=== PATIENT | male | born 1980 | race Two or more races ===

== ENCOUNTER 2016-11-08 12:05 | Inpatient (IN) | payer MEDICAID, OTHER ==
[~2016-11-08] VITALS: Ht 172.7 cm; Wt 123.8 kg
--- NOTE | 2016-11-08 12:05 | NUR ---
PRESENTS SELF TO ED DT RIGHT FOOT WOUND AND PAIN. PT WITH HX OF DIABETES, NAD NOTED, VSS, WAITING FOR MD RENATO.
--- NOTE | 2016-11-08 12:40 | NUR ---
UNABLE TO START IV ACCESS.
--- NOTE | 2016-11-08 12:52 | NUR ---
PAGED DR VALDOVINOS FOR INFECTIOUS DISEASE CONSULT PER DR ALBERTS.
[2016-11-08 13:08] LABS: BASOPHILS # (AUTO) 0.2 /CMM (0.0-0.2); BASOPHILS % (AUTO) 2.3 % (0.0-2.0); EOSINOPHILS # (AUTO) 0.4 /CMM (0.0-0.7); EOSINOPHILS % (AUTO) 5.3 % (0.0-6.0); HEMATOCRIT 43 % (39-51); HEMOGLOBIN 13.5 g/dL (13.5-17.5); LYMPHOCYTES # (AUTO) 1.5 /CMM (0.8-4.8); LYMPHOCYTES % (AUTO) 20.2 % (20.0-44.0); MEAN CORPUSCULAR HEMOGLOBIN 24 PG (26.0-33.0); MEAN CORPUSCULAR HGB CONC 31 g/dl (31.0-36.0); MEAN CORPUSCULAR VOLUME 75 fL (80-96); MONOCYTES # (AUTO) 0.4 /CMM (0.1-1.30); MONOCYTES % (AUTO) 5.6 % (2.0-12.0); NEUTROPHILS # (AUTO) 5.1 /CMM (1.8-8.9); NEUTROPHILS % (AUTO) 66.6 % (43.0-81.0); PLATELET COUNT (AUTO) 349 /CMM (150-450); RDW COEFFICIENT OF VARIATION 14.1 (11.5-15.0); RED BLOOD CELL COUNT(AUTO) 5.74 MIL/uL (4.5-6.0); WHITE BLOOD COUNT (AUTO) 7.6 K/uL (4.3-11.0)
[2016-11-08 13:31] LABS: CALCIUM, SERUM 8.8 mg/dL (8.5-10.1); CARBON DIOXIDE 30 mmol/L (21-32); CHLORIDE 99 mmol/L (98-107); CREATININE 0.8 mg/dL (0.6-1.3); GLUCOSE 264 mg/dL (74-106); POTASSIUM 4.7 mmol/L (3.5-5.1); SODIUM SERUM 135 mmol/L (136-145); UREA NITROGEN, BLOOD 15 mg/dL (7-18)
[2016-11-08 13:36] LABS: INR 0.98 (0.87-1.13); PROTHROMBIN TIME 10.2 SECS (9.5-12.7)
[2016-11-08 13:37] LABS: ALANINE AMINOTRANSFERASE 41 U/L (12-78); ALBUMIN 2.9 g/dL (3.4-5.0); ALKALINE PHOSPHATASE 101 U/L (46-116); ASPARTATE AMINOTRANSFERASE 13 U/L (15-37); BILIRUBIN,DIRECT 0.1 mg/dL (0.0-0.2); BILIRUBIN,TOTAL 0.2 mg/dL (0.2-1.0); TOTAL PROTEIN, SERUM 8.8 g/dL (6.4-8.2)
[2016-11-08 13:38] LABS: TROPONIN I < 0.017 ng/mL (0.00-0.056)
[2016-11-08] MEDS ORDERED: IV NS 0.9% 1,000 ML IV PRN (13:41)
[2016-11-08 13:48] LABS: APPEARANCE,URINE CLEAR (CLEAR); BILIRUBIN,URINE NEGATIVE (NEGATIVE); BLOOD, URINE TRACE-INTA Ery/uL (NEGATIVE); COLOR,URINE YELLOW (YELLOW); KETONES,URINE NEGATIVE (NEGATIVE); LEUKOCYTE ESTERASE ,URINE NEGATIVE (NEGATIVE); NITRITE, URINE NEGATIVE (NEGATIVE); PROTEIN,URINE TRACE mg/dl (NEGATIVE); UGLUCOSE TRACE mg/dL (NEGATIVE); UROBILINOGEN,URINE 0.2 EU/dL (0.2)
[2016-11-08 13:58] LABS: WBC,URINE 0-2 /HPF (0-3)
[2016-11-08 13:59] LABS: BACTERIA,URINE None seen /HPF (None Seen); MUCUS,URINE Moderate /LPF (None Seen); SQUAMOUS EPITHELIAL CELL,UR 0-2 /HPF (None Seen)
[2016-11-08 14:00] VITALS: BP 114/81
[2016-11-08] MEDS ORDERED: MAGNESIUM HYDROXIDE 30 ML UDC PO PRN ×2 (14:00→14:45)
[2016-11-08] MEDS ORDERED: CEFTRIAXONE 1 G in IV D5W 50 ML IV SCH ×2 (14:00→18:00)
[2016-11-08] MEDS ORDERED: HYDROCODONE/APAP 5/325MG 1 EACH TABLET PO PRN (14:00)
[2016-11-08] MEDS ORDERED: MAG HYDROX/AL HYDROX/SIMETH 30 ML UDC PO PRN ×2 (14:00→14:45)
[2016-11-08] MEDS ORDERED: Z GUARD REMEDY 2 OZ OINT TP PRN ×2 (14:00→14:45)
[2016-11-08] MEDS ORDERED: ZOLPIDEM TARTRATE 5 MG TABLET PO PRN (14:00)
[2016-11-08] MEDS ORDERED: ONDANSETRON HCL/PF 4 MG/2 ML VIAL IVP PRN ×2 (14:00→14:45)
[2016-11-08] MEDS ORDERED: ACETAMINOPHEN 325 MG TABLET PO PRN ×2 (14:00→14:45)
--- NOTE | 2016-11-08 14:26 | NUR ---
REPORT GIVEN TO CHEPE JEAN
[2016-11-08 14:45] VITALS: BP 114/81
[2016-11-08 16:00] VITALS: BP 113/77
--- NOTE | 2016-11-08 16:45 | NUR ---
MS MO Initial Notes: Patient arrived in unit at 14:45. Patient alert oriented x4. Was awaiting for admitting to admit the patient. 16:45--patient appeared in system. Patient stable upon arrival. Blood pressure: 114/81, pulse 100, SpO2 98% on room air. Patient afebrile with temperature of 97.7F. Patient reported dizziness upon arrival to unit. Blood sugar checked: 227. Report by Alejo from ER. Patient has an IV site Gauge 20 on right hand. Will continue to monitor and follow orders. Bed in lowest position. Call light within reach
[2016-11-08] MEDS ORDERED: FEE PK DOSING 1 MIN EA MC ONE (17:04)
[2016-11-08] MEDS: HYDROCODONE/APAP 5/325MG 1 EACH TABLET PO PRN ×2 (17:53→22:04)
[2016-11-08] MEDS: IV NS 0.9% 1,000 ML IV PRN (17:59)
[2016-11-08] MEDS: CEFTRIAXONE 1 G in IV D5W 50 ML IV SCH (18:00)
[2016-11-08] MEDS: VANCOMYCIN 1.25 GM in IV D5W 500 ML IV SCH (18:55)
--- NOTE | 2016-11-08 19:20 | NUR ---
RN Closing Notes: Patient resting in bed. Patient alert oriented x4. Non-labored breathing noted on room air. no signs of distress. Patient agreed to have partial skin assessment. No redness or bruising on back. Patient refused to have picture taken of right foot. Patient has an IV site Gauge 20 on right hand. Will continue to monitor and follow orders. Bed in lowest position. Endorsed to next shift
[2016-11-08 19:43] VITALS: BP 130/75
[2016-11-08] MEDS ORDERED: DEXTROSE 50%-WATER 50 ML DISP.SYRIN IV PRN (21:00)
[2016-11-08] MEDS ORDERED: INSULIN REGULAR, HUMAN 100 UNIT/ML 3 ML VIAL SQ PRN (21:00)
[2016-11-08] MEDS: BLOOD SUGAR DIAGNOSTIC 1 EACH STRIP IN SCH (22:05)
[2016-11-09] MEDS: VANCOMYCIN 1.25 GM in IV D5W 500 ML IV SCH ×3 (02:38→18:29)
--- NOTE | 2016-11-09 06:44 | NUR ---
MS RN NOTES AWAKE & RESPONSIVE. NOT IN ANY DISTRESS. NO SOB NOTED. DENIES ANY PAIN OR DISCOMFORT AT THIS TIME. WITH IVF INFUSING WELL. MONITORED ACCORDINGLY. CALL LIGHT WITHIN REACH. BED IN LOWEST POSITION. SR UP X 2 FOR SAFETY. WILL ENDORSE TO NEXT SHIFT.
[2016-11-09] MEDS: BLOOD SUGAR DIAGNOSTIC 1 EACH STRIP IN SCH ×5 (06:50→21:33)
[2016-11-09] MEDS ORDERED: DEXTROSE 50%-WATER 50 ML DISP.SYRIN IV PRN (07:00)
--- NOTE | 2016-11-09 07:30 | NUR ---
MS/RN Patient received Patient received from cook night. Dressing to right foot to be replaced as current dressing was removed by MD. All needs attended, call light within reach. Will continue to monitor and ensure safety.
[2016-11-09] MEDS: HYDROCODONE/APAP 5/325MG 1 EACH TABLET PO PRN ×3 (07:46→21:28)
[2016-11-09 08:00] VITALS: BP 128/75
[2016-11-09 08:26] LABS: CALCIUM, SERUM 8.6 mg/dL (8.5-10.1); CREATININE 0.9 mg/dL (0.6-1.3); POTASSIUM 4.1 mmol/L (3.5-5.1)
[2016-11-09] MEDS: CADEXOMER IODINE 40 GM TUBE TP SCH ×2 (09:34→21:33)
[2016-11-09] MEDS: DAKINS QUARTER STRENGTH (0.125%) 480 ML BOTTLE TOP SCH (09:34)
--- NOTE | 2016-11-09 09:47 | NUR ---
MS/RN Dressing Dressing to right foot changed, redressed with dakins and iodosorb.
--- NOTE | 2016-11-09 10:02 | NUR ---
WOUND CARE CONSULT WOUND CARE RECEIVED CONSULT. WOUND CARE WILL DEFER EVAL AND TREATMENT PLAN TO BARN BOSS DR ALBERTS AT THIS TIME. PATIENT WITH FIDELINA AT 19. DISCUSSED WITH NURSING STAFF. THERE ARE TREATMENT ORDERS IN PLACE FOR THE RIGHT FOOT WOUND PER DPM.
--- NOTE | 2016-11-09 10:06 | NUR ---
MS/RN Vancomycin Vanco administered as ordered. Trough last drawn yesterday, level was 0.
--- NOTE | 2016-11-09 12:30 | NUR ---
MS/RN Refused blood sugar Patient refused blood sugar to be checked, wanting to be left alone to sleep.
[2016-11-09] MEDS: IV NS 0.9% 1,000 ML IV PRN (13:18)
[2016-11-09] MEDS: CEFTRIAXONE 1 G in IV D5W 50 ML IV SCH (14:11)
[2016-11-09 16:00] VITALS: BP 126/76
--- NOTE | 2016-11-09 17:00 | NUR ---
MS/RN Blood sugar Blood sugar this evening 209, per sliding scale eight units regular insulin administered.
[2016-11-09] MEDS: LACTOBACILLUS RHAMNOSUS GG 1 EACH CAP.SPRINK PO SCH (17:21)
[2016-11-09] MEDS: INSULIN REGULAR, HUMAN 100 UNIT/ML 3 ML VIAL SQ PRN (17:25)
--- NOTE | 2016-11-09 18:36 | NUR ---
MS/RN End note Vanco level 14, evening dose of vanco administered as ordered. Dressing on right foot remains clean and dry, no oozing noted. Last pain medication given at 1722. All needs attended at this time, will continue to monitor and endorse to caustic cresylate shift superintendent.
[2016-11-09 20:00] VITALS: BP 112/69
[2016-11-09] MEDS: *INSULIN REGULAR(HUMULIN R)HUM 100 UNIT/ML VIAL SQ PRN (21:26)
[2016-11-10] MEDS: VANCOMYCIN 1.25 GM in IV D5W 500 ML IV SCH ×3 (03:13→17:42)
[2016-11-10] MEDS: BLOOD SUGAR DIAGNOSTIC 1 EACH STRIP IN SCH ×4 (06:36→21:30)
[2016-11-10 06:37] LABS: CALCIUM, SERUM 8.4 mg/dL (8.5-10.1); CREATININE 0.8 mg/dL (0.6-1.3)
[2016-11-10] MEDS: INSULIN REGULAR, HUMAN 100 UNIT/ML 3 ML VIAL SQ PRN ×3 (06:43→17:49)
[2016-11-10] MEDS: IV NS 0.9% 1,000 ML IV PRN ×2 (07:13→17:43)
--- NOTE | 2016-11-10 07:30 | NUR ---
MS/RN Patient received Patient received from maintenance technician 3rd shift. No needs expressed at this time, call light within reach. Will continue to monitor and ensure safety.
[2016-11-10 08:00] VITALS: BP 120/77
[2016-11-10] MEDS: HYDROCODONE/APAP 5/325MG 1 EACH TABLET PO PRN ×2 (08:00→17:41)
[2016-11-10] MEDS: LACTOBACILLUS RHAMNOSUS GG 1 EACH CAP.SPRINK PO SCH ×2 (08:00→17:40)
[2016-11-10] MEDS: CADEXOMER IODINE 40 GM TUBE TP SCH ×2 (08:01→17:51)
[2016-11-10] MEDS: DAKINS QUARTER STRENGTH (0.125%) 480 ML BOTTLE TOP SCH (08:01)
--- NOTE | 2016-11-10 08:18 | NUR ---
MS/RN Pain C/O pain to right foot, norco one tablet given, will monitor effectiveness.
[2016-11-10 08:23] VITALS: BP 109/68
--- NOTE | 2016-11-10 10:00 | NUR ---
MS/CHEPE hurt as ordered.
--- NOTE | 2016-11-10 12:15 | NUR ---
MS/RN Blood sugar Blood sugar at noon 333, 16 units of insulin administered as per sliding scale.
[2016-11-10] MEDS: CEFTRIAXONE 1 G in IV D5W 50 ML IV SCH (13:52)
[2016-11-10 16:00] VITALS: BP 124/72
[2016-11-10 16:36] VITALS: BP 124/72
--- NOTE | 2016-11-10 18:50 | NUR ---
MS/RN End note Patient appears comfortable, in no distress. Last pain medication administered at 1715. Dressing to right foot dry and intact. All needs attended, will endorse to shiftman.
[2016-11-10 20:00] VITALS: BP 120/75
--- NOTE | 2016-11-10 20:10 | NUR ---
MS RN NOTE: PATIENT RESTING IN BED, NO ACUTE DISTRESS NOTED. BREATHING EVEN AND UNLABORED, NO SOB NOTED. IV TO TIRSO IN PLACE, INFUSING NS AT 75ML/HR. DRESSING TO RIGHT FOOT IN PLACE, CLEAN AND DRY. NO S/S OF HYPER/HYPOGLYCEMIA NOTED. BED LOCKED AND IN LOWEST POSITION, CALL LIGHT IN REACH. WILL CONTINUE TO MONITOR.
--- NOTE | 2016-11-10 21:30 | NUR ---
MS RN NOTE: PATIENT BLOOD SUGAR LEVEL 287 MG/DL, PATIENT TO RECEIVE 6 UNITS OF INSULIN PER SLIDING SCALE, NO S/S OF HYPERGLYCEMIA NOTED. WILL CONTINUE TO MONITOR.
[2016-11-10] MEDS: *INSULIN REGULAR(HUMULIN R)HUM 100 UNIT/ML VIAL SQ PRN (21:36)
--- NOTE | 2016-11-10 22:29 | NUR ---
Spoke with patient,he lives in [place] with roommates. He ambulates with a cane. He is independent with adl's. He regularly follow up with [facility] wound [facility] for wound management. Patient reports he does his wound care at home and will need more supplies from [facility] upon discharge. Addendum: 11/10/16 at 2229 by LAUREN ERNANDEZ RN Amended: Links added.
[2016-11-11] MEDS: VANCOMYCIN 1.25 GM in IV D5W 500 ML IV SCH ×3 (01:39→18:34)
--- NOTE | 2016-11-11 06:20 | NUR ---
MS RN NOTE: PATIENT RESTING IN BED, NO ACUTE DISTRESS NOTED. BREATHING EVEN AND UNLABORED, NO SOB NOTED. IV TO TIRSO IN PLACE, INFUSING NS AT 75ML/HR. DRESSING TO RIGHT FOOT IN PLACE, CLEAN AND DRY. NO S/S OF HYPER/HYPOGLYCEMIA NOTED. BED LOCKED AND IN LOWEST POSITION, CALL LIGHT IN REACH. WILL ENDORSE TO DAY NURSE TO CONTINUE WITH PLAN OF CARE.
[2016-11-11] MEDS: BLOOD SUGAR DIAGNOSTIC 1 EACH STRIP IN SCH ×4 (06:46→21:24)
[2016-11-11] MEDS: INSULIN REGULAR, HUMAN 100 UNIT/ML 3 ML VIAL SQ PRN ×3 (06:54→17:16)
[2016-11-11 07:11] LABS: CALCIUM, SERUM 8.8 mg/dL (8.5-10.1); CREATININE 0.8 mg/dL (0.6-1.3); POTASSIUM 4.3 mmol/L (3.5-5.1)
[2016-11-11 08:00] VITALS: BP 128/67
[2016-11-11] MEDS: LACTOBACILLUS RHAMNOSUS GG 1 EACH CAP.SPRINK PO SCH ×2 (09:24→16:56)
[2016-11-11] MEDS: DAKINS QUARTER STRENGTH (0.125%) 480 ML BOTTLE TOP SCH (09:25)
[2016-11-11] MEDS: CADEXOMER IODINE 40 GM TUBE TP SCH ×2 (09:25→17:15)
[2016-11-11] MEDS: HYDROCODONE/APAP 5/325MG 1 EACH TABLET PO PRN ×3 (09:28→21:24)
[2016-11-11] MEDS: CEFTRIAXONE 1 G in IV D5W 50 ML IV SCH (14:22)
[2016-11-11] MEDS: IV NS 0.9% 1,000 ML IV PRN (14:23)
[2016-11-11 16:00] VITALS: BP 117/71
[2016-11-11] MEDS: NICOTINE PATCH (21MG) 21 MG PATCH.TD24 TD SCH (16:56)
--- NOTE | 2016-11-11 19:14 | NUR ---
RN CLOSING NOTES NO SIGNIFICANT CHANGE IN PATIENT CONDITION. NO SOB OR DISTRESS NOTED AT THIS TIME. PATIENT DENIES PAIN AT THIS TIME. BED IN A LOW POSITION, CALL LIGHT WITHIN PATIENT REACH. ENDORSED FOR LAITH.
--- NOTE | 2016-11-11 19:45 | NUR ---
MS RN NOTES RECEIVED ON BED WATCHING TV PROGRAM,A/O X4,NO SOB,RIGHT FOOT DRESSING INTACT AND DRY.SALINE LOCK X2 ON RIGHT ARM INTACT AND PATENT.WITH IVF NS AT 75ML/HR RATE IN PROGRESS VIA IV PUMP.CALL LIGT IN REACH,NEEDS ANTICIPATED.
[2016-11-11 20:00] VITALS: BP 112/77
--- NOTE | 2016-11-11 21:24 | NUR ---
MS RN NOTES PAIN MANAGEMENT C/O PAIN VIA RIGHT FOOT/10 ON PAIN SCALE,MEDICATED WITH NORCO 5/325,1TAB PO ORDERED
[2016-11-11] MEDS: *INSULIN REGULAR(HUMULIN R)HUM 100 UNIT/ML VIAL SQ PRN (21:42)
--- NOTE | 2016-11-11 22:00 | NUR ---
MS RN NOTES HAD SHOWER,SALINE LOCK RIGHT UPPER ARM INFILTRATED.NEW SALINE LOCK PLACE ON LFA #22,SAME IVF INFUSING AT THIS TIME.DRESSING CHANGE LOW ON THE RIGHT FOOT POST SHOWER.
--- NOTE | 2016-11-11 22:15 | NUR ---
MS RN NOTES ACCU-CHECK BLOOD SUGAR CHECK 361,COVERED WITH HUMULIN R 10 UNITES PER AGGRESSIVE SLIDING SCALE.
[2016-11-12] MEDS: VANCOMYCIN 1.25 GM in IV D5W 500 ML IV SCH ×3 (01:34→17:05)
--- NOTE | 2016-11-12 06:14 | NUR ---
MS RN NOTES FAIRLY RESTED AT NIGHT,IVF INFUSING,IV ABX TOLERATED WELL.IN NO ACUTE DISTRESS.WILL ENDORSE TO DAY NURSE FOR LAITH.
--- NOTE | 2016-11-12 07:07 | NUR ---
RN INITIAL NOTES REPORT RECEIVED AT THE BEDSIDE. PATIENT IS SLEEPING. NO SOB OR DISTRESS NOTED AT THIS TIME. PATIENT DENIES SIGNIFICANT PAIN. BLOOD SUGAR CHECKED, WILL ADMIN INSULIN ORDERED. BED IN A LOW POSITION, CALL LIGHT WITHIN PATIENT REACH. WILL CONTINUE TO MONITOR.
[2016-11-12 07:33] LABS: CALCIUM, SERUM 8.6 mg/dL (8.5-10.1); CREATININE 0.9 mg/dL (0.6-1.3); POTASSIUM 3.9 mmol/L (3.5-5.1)
[2016-11-12 08:00] VITALS: BP 105/55
[2016-11-12] MEDS: BLOOD SUGAR DIAGNOSTIC 1 EACH STRIP IN SCH ×4 (08:04→21:50)
[2016-11-12] MEDS: DAKINS QUARTER STRENGTH (0.125%) 480 ML BOTTLE TOP SCH (08:05)
[2016-11-12] MEDS: NICOTINE PATCH (21MG) 21 MG PATCH.TD24 TD SCH (08:05)
[2016-11-12] MEDS: LACTOBACILLUS RHAMNOSUS GG 1 EACH CAP.SPRINK PO SCH ×2 (08:05→17:05)
[2016-11-12] MEDS: CADEXOMER IODINE 40 GM TUBE TP SCH ×2 (08:05→17:05)
[2016-11-12] MEDS: INSULIN REGULAR, HUMAN 100 UNIT/ML 3 ML VIAL SQ PRN ×3 (08:07→17:05)
[2016-11-12] MEDS: HYDROCODONE/APAP 5/325MG 1 EACH TABLET PO PRN ×3 (09:05→22:00)
[2016-11-12] MEDS: IV NS 0.9% 1,000 ML IV PRN (11:48)
[2016-11-12] MEDS: CEFTRIAXONE 1 G in IV D5W 50 ML IV SCH (14:30)
[2016-11-12 16:00] VITALS: BP 122/72
[2016-11-12 18:23] LABS: BASOPHILS % (AUTO) 0.3 % (0.0-2.0); EOSINOPHILS # (AUTO) 0.4 /CMM (0.0-0.7); EOSINOPHILS % (AUTO) 5.1 % (0.0-6.0); HEMATOCRIT 41 % (39-51); LYMPHOCYTES # (AUTO) 2.3 /CMM (0.8-4.8); LYMPHOCYTES % (AUTO) 27.9 % (20.0-44.0); MEAN CORPUSCULAR HEMOGLOBIN 24 PG (26.0-33.0); MEAN CORPUSCULAR HGB CONC 31 g/dl (31.0-36.0); MEAN CORPUSCULAR VOLUME 76 fL (80-96); MONOCYTES # (AUTO) 0.3 /CMM (0.1-1.30); MONOCYTES % (AUTO) 4.2 % (2.0-12.0); NEUTROPHILS # (AUTO) 5.1 /CMM (1.8-8.9); NEUTROPHILS % (AUTO) 62.5 % (43.0-81.0); PLATELET COUNT (AUTO) 329 /CMM (150-450); RDW COEFFICIENT OF VARIATION 14.9 (11.5-15.0); RED BLOOD CELL COUNT(AUTO) 5.43 MIL/uL (4.5-6.0); WHITE BLOOD COUNT (AUTO) 8.2 K/uL (4.3-11.0)
--- NOTE | 2016-11-12 19:30 | NUR ---
RN INITIAL NOTES REPORT RECEIVED AT THE BEDSIDE. PATIENT AWAKE ALERT AND ORIENTED SITTING UP IN CHAIR. NO SOB OR DISTRESS NOTED AT THIS TIME. PATIENT DENIES SIGNIFICANT PAIN. BED IN A LOW POSITION, CALL LIGHT WITHIN PATIENT REACH. WILL CONTINUE TO MONITOR.
[2016-11-12 20:00] VITALS: BP 132/71
[2016-11-12] MEDS: *INSULIN REGULAR(HUMULIN R)HUM 100 UNIT/ML VIAL SQ PRN (22:03)
[2016-11-12] MEDS: ZOLPIDEM TARTRATE 5 MG TABLET PO PRN (22:23)
[2016-11-13] MEDS: VANCOMYCIN 1.25 GM in IV D5W 500 ML IV SCH ×2 (03:53→10:19)
--- NOTE | 2016-11-13 06:16 | NUR ---
MS RN NOTE PATIENT STABLE. NO DISTRESS NOTED. IV SITE INTACT, WITH NO REDNESS OR INFILTRATION. FLUIDS RUNNING ORDERED. PATIENT NPO SINCE MIDNIGHT FOR DEBRIDEMENT OF RIGHT FOOT THIS AM. CONSENT SIGNED AND PRE-OP CHECKLIST COMPLETE. WILL ENDORSE TO DAY SHIFT FOR LAITH.
[2016-11-13 06:44] LABS: BASOPHILS % (AUTO) 0.5 % (0.0-2.0); EOSINOPHILS # (AUTO) 0.3 /CMM (0.0-0.7); HEMATOCRIT 38 % (39-51); HEMOGLOBIN 12.5 g/dL (13.5-17.5); LYMPHOCYTES # (AUTO) 2.1 /CMM (0.8-4.8); LYMPHOCYTES % (AUTO) 24.1 % (20.0-44.0); MEAN CORPUSCULAR HEMOGLOBIN 25 PG (26.0-33.0); MEAN CORPUSCULAR HGB CONC 33 g/dl (31.0-36.0); MEAN CORPUSCULAR VOLUME 76 fL (80-96); MONOCYTES # (AUTO) 0.5 /CMM (0.1-1.30); MONOCYTES % (AUTO) 5.2 % (2.0-12.0); NEUTROPHILS # (AUTO) 5.7 /CMM (1.8-8.9); NEUTROPHILS % (AUTO) 66.2 % (43.0-81.0); PLATELET COUNT (AUTO) 328 /CMM (150-450); RDW COEFFICIENT OF VARIATION 14.8 (11.5-15.0); RED BLOOD CELL COUNT(AUTO) 5.08 MIL/uL (4.5-6.0); WHITE BLOOD COUNT (AUTO) 8.6 K/uL (4.3-11.0)
[2016-11-13] MEDS: BLOOD SUGAR DIAGNOSTIC 1 EACH STRIP IN SCH ×4 (06:57→21:31)
[2016-11-13 07:00] LABS: CREATININE 0.9 mg/dL (0.6-1.3); MAGNESIUM 1.9 mg/dL (1.8-2.4); PHOSPHORUS 4.1 mg/dL (2.5-4.9); POTASSIUM 3.9 mmol/L (3.5-5.1)
--- NOTE | 2016-11-13 07:03 | NUR ---
MS RN NOTE BLOOD SUGAR 223. NO INSULIN GIVEN. PATIENT NPO FOR DEBRIDEMENT. OR CAME TO SOFTWARE DEPLOYMENT ENGINEER PATIENT FOR SURGERY AT THIS TIME.
[2016-11-13 07:17] LABS: CALCIUM, SERUM 8.3 mg/dL (8.5-10.1)
[2016-11-13] MEDS ORDERED: FENTANYL PF 100MCG/2ML AMPUL ONE (07:20)
[2016-11-13] MEDS ORDERED: MIDAZOLAM HCL 2 MG/2ML VIAL ONE (07:20)
--- NOTE | 2016-11-13 07:20 | NUR ---
CHEPE MS NOTES PATIENT CURRENTLY IN OR FOR WOUND DEBRIDEMENT.
[2016-11-13] MEDS ORDERED: LIDOCAINE 1% INJ 50 ML MDV IJ ONE (07:57)
[2016-11-13 08:00] VITALS: BP 122/68
--- NOTE | 2016-11-13 08:57 | NUR ---
RN MS NOTES PATIENT CAME BACK FROM OR ALERT AND ORIENTED, ASKING FOR A CIGARETTE AT 0930, INFORMED PATIENT HE SHOULD WAIT AN HOUR OR TWO FOR SAFETY REASONS D/T THE ANESTHESIA. PATIENT STATED HE CANNOT WAIT AN HOUR, PER PATIENT "I AM GOOD." EXPLAINED RISKS, BUTPATIENT IS STILL INSISTING OF GETTING A CIGARETTE.
[2016-11-13] MEDS: NICOTINE PATCH (21MG) 21 MG PATCH.TD24 TD SCH (09:00)
[2016-11-13] MEDS: DAKINS QUARTER STRENGTH (0.125%) 480 ML BOTTLE TOP SCH (09:00)
[2016-11-13] MEDS: CADEXOMER IODINE 40 GM TUBE TP SCH ×2 (09:00→17:00)
[2016-11-13] MEDS: LACTOBACILLUS RHAMNOSUS GG 1 EACH CAP.SPRINK PO SCH ×2 (09:04→17:18)
--- NOTE | 2016-11-13 09:05 | NUR ---
RN MS NOTES OFFERED NICOTINE PATCH, REFUSED, IODOSORB AND DAKINS NOT ADMINISTERED, D/T RIGHT FOOT COVERED WITH DRESSING FROM S/P DEBRIDEMENT.
[2016-11-13] MEDS: HYDROCODONE/APAP 5/325MG 1 EACH TABLET PO PRN ×3 (09:06→21:34)
[2016-11-13] MEDS: INSULIN REGULAR, HUMAN 100 UNIT/ML 3 ML VIAL SQ PRN ×3 (12:01→21:33)
[2016-11-13] MEDS: CEFTRIAXONE 1 G in IV D5W 50 ML IV SCH (14:54)
[2016-11-13] MEDS: IV NS 0.9% 1,000 ML IV PRN (15:02)
[2016-11-13 16:00] VITALS: BP 120/69
--- NOTE | 2016-11-13 18:35 | NUR ---
RN MS NOTES PATIENT ALERT AND ORIENTED, NO DISTRESS, RIGHT FOOT DRESSING C/D/I, NO BLEEDING NOTED, INSTRUCTED PATIENT TO ELEVATE RLE, BUT PATIENT KEPT MOVING AND TRANSFERRING HIMSELF TO HIS WHEELCHAIR TO SMOKE, VITAL SIGNS STABLE, WILL START PT/OT EVAL TOMORROW, NEEDS ATTENDED AND MET, CALL LIGHT WITHIN REACH, WILL ENDORSE TO NURSE RECRUITER FOR LAITH.
--- NOTE | 2016-11-13 19:30 | NUR ---
MS RN NOTE RECEIVED PATIENT AWAKE AND ALERT IN CHAIR. NO RESPIRATORY DISTRESS OR SOB. REPORTS 6/10 PAIN TO RIGHT FOOT. RELAXATION TECHNIQUES PROVIDED. WILL ADMINISTER PAIN MEDICATION ORDERED. IV SITE INTACT, WITH FLUIDS RUNNING ORDERED. BED LOCKED AND IN LOWEST POSITION, SIDE RAILS UP, CALL LIGHT WITHIN REACH. WILL CONTINUE TO MONITOR.
[2016-11-13] MEDS ORDERED: INSU3INS6 SUBCUT (19:40)
[2016-11-13] MEDS ORDERED: INSU100V27 SQ (19:40)
--- NOTE | 2016-11-13 19:40 | NUR ---
RN MS NOTES PATIENT REPORTED INSULIN DOSAGES FROM HOME, INPUTTED IN MED RECON, DR. WAGNER MADE AWARE.
[2016-11-13 20:00] VITALS: BP 119/61
[2016-11-13] MEDS: VANCOMYCIN 1.5 GM in IV D5W 500ml IV SCH (20:27)
[2016-11-13] MEDS: ZOLPIDEM TARTRATE 5 MG TABLET PO PRN (21:58)
[2016-11-14 06:35] LABS: BASOPHILS # (AUTO) 0.1 /CMM (0.0-0.2); BASOPHILS % (AUTO) 0.6 % (0.0-2.0); EOSINOPHILS # (AUTO) 0.3 /CMM (0.0-0.7); EOSINOPHILS % (AUTO) 3.5 % (0.0-6.0); HEMATOCRIT 37 % (39-51); HEMOGLOBIN 12.1 g/dL (13.5-17.5); LYMPHOCYTES # (AUTO) 2.4 /CMM (0.8-4.8); LYMPHOCYTES % (AUTO) 25.6 % (20.0-44.0); MEAN CORPUSCULAR HEMOGLOBIN 24 PG (26.0-33.0); MEAN CORPUSCULAR HGB CONC 33 g/dl (31.0-36.0); MEAN CORPUSCULAR VOLUME 75 fL (80-96); MONOCYTES # (AUTO) 0.6 /CMM (0.1-1.30); MONOCYTES % (AUTO) 6.3 % (2.0-12.0); NEUTROPHILS # (AUTO) 5.9 /CMM (1.8-8.9); PLATELET COUNT (AUTO) 317 /CMM (150-450); RED BLOOD CELL COUNT(AUTO) 4.97 MIL/uL (4.5-6.0); WHITE BLOOD COUNT (AUTO) 9.2 K/uL (4.3-11.0)
[2016-11-14] MEDS: INSULIN REGULAR, HUMAN 100 UNIT/ML 3 ML VIAL SQ PRN ×4 (06:50→21:44)
[2016-11-14] MEDS: BLOOD SUGAR DIAGNOSTIC 1 EACH STRIP IN SCH ×4 (06:51→21:28)
--- NOTE | 2016-11-14 06:53 | NUR ---
MS RN NOTE PATIENT STABLE. BLOOD SUGAR 144. 2 UNITS GIVEN. WILL ENDORSE TO DAY SHIFT FOR LAITH.
[2016-11-14 06:54] LABS: CALCIUM, SERUM 8.3 mg/dL (8.5-10.1); CREATININE 0.7 mg/dL (0.6-1.3); MAGNESIUM 1.9 mg/dL (1.8-2.4); PHOSPHORUS 3.9 mg/dL (2.5-4.9)
--- NOTE | 2016-11-14 07:59 | NUR ---
RN NOTES RECEIVED PT. PT IS STABLE AND RESTING IN BED. A/OX4. NO S/S OF DISTRESS OR SOB. PT HAS NO C/O PAIN AT THIS TIME. IV ACCESS LOCATED ON LEFT FA, 22G RUNNING NS AT 75 ML/HR. SAFETY MEASURES IN PLACE, CALL LIGHT WITHIN REACH. WILL CONTINUE TO MONITOR.
[2016-11-14 08:00] VITALS: BP 108/51
[2016-11-14] MEDS: NICOTINE PATCH (21MG) 21 MG PATCH.TD24 TD SCH (09:00)
[2016-11-14] MEDS: LACTOBACILLUS RHAMNOSUS GG 1 EACH CAP.SPRINK PO SCH ×2 (09:08→17:36)
[2016-11-14] MEDS: VANCOMYCIN 1.5 GM in IV D5W 500ml IV SCH ×2 (09:08→19:40)
[2016-11-14] MEDS: CADEXOMER IODINE 40 GM TUBE TP SCH ×2 (09:18→17:42)
[2016-11-14] MEDS: DAKINS QUARTER STRENGTH (0.125%) 480 ML BOTTLE TOP SCH (09:18)
[2016-11-14] MEDS: CEFTRIAXONE 1 G in IV D5W 50 ML IV SCH (14:48)
[2016-11-14 16:00] VITALS: BP 99/54
--- NOTE | 2016-11-14 19:16 | NUR ---
RN CLOSING NOTES PT IS IN BED RESTING. A/OX4. NO S/S OF DISTRESS OR SOB. PT HAS MILD C/O PAIN, WILL ENDORSE TO ANALYTICS SPECIALIST TO ADDRESS. NEW IV MIDLINE LOCATED ON RIGHT WRIST. LEFT FA PERIPHERAL IV D/C DUE TO INFILTRATION. SAFETY MEASURES IN PLACE, CALL LIGHT WITHIN REACH, WILL ENDORSE TO ANALYTICS SPECIALIST FOR LAITH.
[2016-11-14 20:00] VITALS: BP 115/57
--- NOTE | 2016-11-14 20:00 | NUR ---
MS RN NOTES IN ROOM,SITTING ON BEDSIDE CHAIR,RIGHT FOOT DRESSING INTACT AND DRY.NO ACTIVE BLEEDING NOTED.ADVISED NON WEIGHT BEARING ON THE RIGHT FOOT.SALINE LOCK RIGHT WRIST INTACT AND PATENT.IVF NS AT 75ML/HR RATE IN PROGRESS.
--- NOTE | 2016-11-14 20:00 | NUR ---
MS RN NOTES DUE VANCOMYCIN 1.5GM IVPB HUNG
[2016-11-14 20:05] VITALS: BP 115/57
[2016-11-14] MEDS: HYDROCODONE/APAP 10/325MG 1 EA TABLET PO PRN (20:32)
--- NOTE | 2016-11-14 20:32 | NUR ---
MS RN NOTES PAIN MANAGEMENT C/O PAIN 7/10 ON PAIN SCALE VIA RIGHT FOOT,MEDICATED WITH NORCO 10/325MG,1 TAB PO ORDERED FOR MODERATE PAIN
[2016-11-14] MEDS ORDERED: INSULIN DETEMIR 100 UNIT/ML CARTRIDGE SQ ONE (22:10)
[2016-11-14] MEDS: INSULIN DETEMIR 100 UNIT/ML CARTRIDGE SQ SCH (22:44)
--- NOTE | 2016-11-14 22:44 | NUR ---
MS RN NOTES BLOOD SUGAR 193,NEW ORDER OF LANTUS 42 UNITS ADMINISTERED SQ VIA LEFT DELTOID
[2016-11-14] MEDS: ZOLPIDEM TARTRATE 5 MG TABLET PO PRN (23:39)
--- NOTE | 2016-11-14 23:39 | NUR ---
MS RN NOTES C/ INSOMNIA.AMBIEN 5MG PO GIVEN ORDERED.
[2016-11-15] MEDS: BLOOD SUGAR DIAGNOSTIC 1 EACH STRIP IN SCH ×4 (05:55→21:23)
--- NOTE | 2016-11-15 07:26 | NUR ---
MS RN NOTES IV SITE INFILTRATED,NEEDLE REMOVED PER PATIENT REQUEST.OFFERED TO PUT NEW SALINE LOCK BUT HE WANTS TO SLEEP.ENDORSE TO ADEN MO FOR LAITH.
--- NOTE | 2016-11-15 07:50 | NUR ---
RN NOTES PT IS AWAKE AND RESTING IN BED. A/OX3. PT HAS NO S/S OF DISTRESS OR SOB. NO C/O PAIN AT THIS TIME. PT HAD REMOVED IV ACCESS PREVIOUS NIGHT. MIDLINE ORDERED. SAFETY MEASURES IN PLACE, CALL LIGHT WITHIN REACH. WILL CONTINUE TO MONITOR.
[2016-11-15 08:00] VITALS: BP 117/67
[2016-11-15] MEDS: NICOTINE PATCH (21MG) 21 MG PATCH.TD24 TD SCH (09:00)
[2016-11-15] MEDS: LACTOBACILLUS RHAMNOSUS GG 1 EACH CAP.SPRINK PO SCH ×2 (09:18→16:00)
[2016-11-15] MEDS: VANCOMYCIN 1.5 GM in IV D5W 500ml IV SCH ×2 (09:19→19:50)
[2016-11-15] MEDS: DAKINS QUARTER STRENGTH (0.125%) 480 ML BOTTLE TOP SCH (09:20)
[2016-11-15] MEDS: CADEXOMER IODINE 40 GM TUBE TP SCH ×2 (09:20→17:45)
[2016-11-15] MEDS: INSULIN ASPART HUMALOG/NOVOLOG 100 UNIT/ML CARTRIDGE SQ SCH ×3 (09:38→17:45)
[2016-11-15] MEDS: HYDROCODONE/APAP 10/325MG 1 EA TABLET PO PRN ×3 (09:39→21:59)
[2016-11-15 11:53] LABS: CALCIUM, SERUM 8.5 mg/dL (8.5-10.1); CREATININE 0.8 mg/dL (0.6-1.3); POTASSIUM 4.2 mmol/L (3.5-5.1)
[2016-11-15] MEDS: CEFTRIAXONE 1 G in IV D5W 50 ML IV SCH (15:50)
[2016-11-15 16:00] VITALS: BP 124/66
[2016-11-15] MEDS: FERROUS SULFATE (325 MG) 325 MG/TAB TABLET PO SCH (17:40)
--- NOTE | 2016-11-15 18:47 | NUR ---
RN CLOSING NOTE PT IS A/OX4, SITTING IN BEDSIDE CHAIR. NO S/S OF DISTRESS OR SOB. NO C/O PAIN. NEXT PAIN MANAGEMENT PHARMACOLOGICAL INTERVENTION SET FOR 2200. IV ACCESS PATENT, RIGHT UPPER ARM MIDLINE 18G. SAFETY MEASURES IN PLACE, CALL LIGHT WITHIN REACH. WILL ENDORSE TO REGIONAL PROPERTY MANAGER FOR LAITH.
--- NOTE | 2016-11-15 19:30 | NUR ---
RN NOTES RECEIVED PT. AWAKE ,SITTING ON THE CHAIR, TALKING TO HIS FRIEND, MIDLINE IN PLACE, DENIES PAIN, NO SOB, CALL LIGHT WITHIN REACH, SIDERAILS UPX2 CONTINUE TO MONITOR
[2016-11-15 20:00] VITALS: BP 122/75
--- NOTE | 2016-11-15 21:20 | NUR ---
RN NOTES ASKED FOR SLEEPING PILL- AMBIEN 10MG PO GIVEN ORDERED, V/S STABLE
[2016-11-15] MEDS: INSULIN DETEMIR 100 UNIT/ML CARTRIDGE SQ SCH (21:28)
[2016-11-15] MEDS: INSULIN REGULAR, HUMAN 100 UNIT/ML 3 ML VIAL SQ PRN (21:32)
[2016-11-15] MEDS ORDERED: ZOLPIDEM TARTRATE 5 MG TABLET PO PRN (22:00)
--- NOTE | 2016-11-15 22:02 | NUR ---
rn notes complained of right foot pain- norco 10/325 mg po given as ordered, v/s stable
--- NOTE | 2016-11-15 23:00 | NUR ---
RN NOTES PT ASKED TO BE UNPLUGGED ON HIS IV FLUID SINCE HE'S DRINKING A LOT OF WATER
[2016-11-16] MEDS: HYDROCODONE/APAP 10/325MG 1 EA TABLET PO PRN ×3 (05:21→21:40)
--- NOTE | 2016-11-16 05:23 | NUR ---
RN NOTES COMPLAINED OF RIGHT FOOT PAIN- NORCO 410/325MG PO GIVEN ORDERED, V/S STABLE
--- NOTE | 2016-11-16 06:23 | NUR ---
RN NOTES SLEEPING BUT AROUSABLE, DENIES PAIN, NO SOB, MORNING CARE RENDERED, CALL LIGHT WITHIN REACH, SIDERAILS UPX2 PT. NEEDS ATTENDED
[2016-11-16] MEDS: BLOOD SUGAR DIAGNOSTIC 1 EACH STRIP IN SCH ×4 (06:35→21:33)
[2016-11-16] MEDS: INSULIN REGULAR, HUMAN 100 UNIT/ML 3 ML VIAL SQ PRN ×3 (06:41→21:36)
--- NOTE | 2016-11-16 07:30 | NUR ---
MS/RN Patient received Patient received from overnight caregiver. A/0X4, denies any pain or discomfort, dressing to foot remains dry and intact, no oozing noted through dressing. Call light within reach, will continue to monitor and ensure safety.
[2016-11-16 08:00] VITALS: BP 126/68
[2016-11-16] MEDS: MULTIVITAMINS,THERAGRAN 1 UDTAB TABLET PO SCH (08:20)
[2016-11-16] MEDS: FERROUS SULFATE (325 MG) 325 MG/TAB TABLET PO SCH ×2 (08:20→17:32)
[2016-11-16] MEDS: LACTOBACILLUS RHAMNOSUS GG 1 EACH CAP.SPRINK PO SCH ×2 (08:20→17:32)
[2016-11-16] MEDS: ASCORBIC ACID 500 MG TABLET PO SCH (08:20)
--- NOTE | 2016-11-16 08:20 | NUR ---
MS/RN Medications Morning medications administered as ordered.
[2016-11-16] MEDS: CADEXOMER IODINE 40 GM TUBE TP SCH ×2 (08:21→17:00)
[2016-11-16] MEDS: NICOTINE PATCH (21MG) 21 MG PATCH.TD24 TD SCH (08:21)
[2016-11-16] MEDS: DAKINS QUARTER STRENGTH (0.125%) 480 ML BOTTLE TOP SCH (08:21)
[2016-11-16] MEDS: INSULIN ASPART HUMALOG/NOVOLOG 100 UNIT/ML CARTRIDGE SQ SCH ×3 (08:30→17:39)
[2016-11-16 08:33] LABS: CALCIUM, SERUM 8.4 mg/dL (8.5-10.1); CREATININE 0.8 mg/dL (0.6-1.3); POTASSIUM 4.1 mmol/L (3.5-5.1)
--- NOTE | 2016-11-16 08:45 | NUR ---
MS/RN Vancomycin level Vancomycin level 11, will administer dose as ordered.
[2016-11-16] MEDS: VANCOMYCIN 1.5 GM in IV D5W 500ml IV SCH ×2 (08:57→21:24)
--- NOTE | 2016-11-16 12:31 | NUR ---
MS/RN Blood sugar Blood sugar at noon 143, patient refused sliding scale insulin coverage but agreed to regularly scheduled humalog 14 units.
[2016-11-16] MEDS: CEFTRIAXONE 1 G in IV D5W 50 ML IV SCH (14:44)
[2016-11-16 16:00] VITALS: BP 138/87
--- NOTE | 2016-11-16 18:34 | NUR ---
MS/RN End note Dressing changed by patient, not nursing. Stated that he wanted to show that he was able to take care of the wound himself. Midline per patient "accidently pulled out" by patient. Buck made aware, order given to reinsert. Seen by Thania Becerra to be called tomorrowto see if wound culture is sensitive to levaquin or cipro. Will endorse to retail shift supervisor.
--- NOTE | 2016-11-16 19:30 | NUR ---
RN NOTES RECEIVED PATIENT UP IN BED, AO X 3, ABLE TO MAKE NEEDS KNOWN. NO ACUTE DISTRESS NOTED. DENIES ANY PAIN AT THIS TIME. NO SYMPTOMS OF HYPER/HYPOGLYCEMIA. SAFETY REMINDERS GIVEN. ON LOW BED WITH BILATERAL UPPER SIDE RAILS UP. CALL LIGHT WITHIN EASY REACH. WILL CONTINUE TO MONITOR.
[2016-11-16 20:00] VITALS: BP_SYST 112; BP_SYST 120; BP_DIAS 56; BP_DIAS 57
--- NOTE | 2016-11-16 20:23 | NUR ---
RN NOTES RECEIVED ORDER FROM FRANTZ QUARLES FOR MIDLINE INSERTION, NOTED. PER DENIAL RESOLUTION SPECIALIST, NURSE FOR MIDLINE INSERTION WILL COME TO UNIT AT AROUND 2200. PATIENT MADE AWARE.
[2016-11-16] MEDS: INSULIN DETEMIR 100 UNIT/ML CARTRIDGE SQ SCH (21:34)
--- NOTE | 2016-11-17 06:14 | NUR ---
RN NOTES PATIENT ASLEEP, EASILY AROUSABLE. RESPIRATIONS EVEN. NO SIGNS OF PAIN NOTED. DUE MEDS GIVEN WITH NO ASE NOTED. NEEDS ATTENDED. SAFETY PRECAUTIONS AND COMFORT MEASURES IN PLACE. WILL GIVE REPORT TO DAY SHIFT FOR CONTINUITY OF CARE.
[2016-11-17] MEDS: BLOOD SUGAR DIAGNOSTIC 1 EACH STRIP IN SCH ×3 (06:42→17:11)
[2016-11-17] MEDS: INSULIN REGULAR, HUMAN 100 UNIT/ML 3 ML VIAL SQ PRN ×3 (06:45→17:24)
--- NOTE | 2016-11-17 07:30 | NUR ---
RN MS NOTES PT IN BED, AWAKE, ALERT AND ORIENTED, NO COMPLAINT OF PAIN OR ANY DISCOMFORT, NOT IN DISTRESS, CALL LIGHT WITHIN REACH, NEEDS ATTENDED, PT SEEN BY DR. ALBERTS, PLAN OF CARE DISCUSSED WITH PT, VERBALIZED UNDERSTANDING.
[2016-11-17 08:00] VITALS: BP 119/66
[2016-11-17] MEDS: FERROUS SULFATE (325 MG) 325 MG/TAB TABLET PO SCH ×2 (08:15→17:11)
[2016-11-17] MEDS: ASCORBIC ACID 500 MG TABLET PO SCH (08:15)
[2016-11-17] MEDS: NICOTINE PATCH (21MG) 21 MG PATCH.TD24 TD SCH ×2 (08:15→08:37)
[2016-11-17] MEDS: MULTIVITAMINS,THERAGRAN 1 UDTAB TABLET PO SCH (08:15)
[2016-11-17] MEDS: LACTOBACILLUS RHAMNOSUS GG 1 EACH CAP.SPRINK PO SCH ×2 (08:15→17:11)
[2016-11-17] MEDS: INSULIN ASPART HUMALOG/NOVOLOG 100 UNIT/ML CARTRIDGE SQ SCH ×3 (08:25→17:25)
[2016-11-17] MEDS: DAKINS QUARTER STRENGTH (0.125%) 480 ML BOTTLE TOP SCH (08:34)
[2016-11-17] MEDS: CADEXOMER IODINE 40 GM TUBE TP SCH ×2 (08:35→17:14)
[2016-11-17 08:42] LABS: CALCIUM, SERUM 8.6 mg/dL (8.5-10.1); CREATININE 0.8 mg/dL (0.6-1.3); POTASSIUM 4.6 mmol/L (3.5-5.1)
[2016-11-17] MEDS: VANCOMYCIN 1.5 GM in IV D5W 500ml IV SCH (08:56)
--- NOTE | 2016-11-17 13:00 | NUR ---
RN MS NOTES PT IN BED, AWAKE, ALERT AND ORIENTED, NO COMPLAINT OF PAIN, TOLERATING CURRENT DIET WELL, CALL LIGHT WITHIN REACH, ALL NEEDS ATTENDED.
[2016-11-17] MEDS: CEFTRIAXONE 1 G in IV D5W 50 ML IV SCH (14:27)
[2016-11-17] MEDS: HYDROCODONE/APAP 10/325MG 1 EA TABLET PO PRN ×2 (14:39→17:11)
[2016-11-17] MEDS ORDERED: MUPIROCIN OINT 2% 22 GM TUBE SCH (15:00)
--- NOTE | 2016-11-17 17:55 | NUR ---
RN MS NOTES PT SEEN BY EMMANUEL LOJA, DISCHARGE ORDER GIVEN, DICHARGE AND MEDICATION INSTRUCTIONS PROVIDED TO PT, VERBALIZED UNDERSTANDING, WOUND TREATMENT DONE, WOUND CARE TEACHING DONE, PRESCRIPTIONS GIVEN TO PT, PT ALREADY MADE FOLLOW UP APPOINTMENTS, BELONGINGS ACCOUNTED FOR, BUS TOKENS PROVIDED, LEFT IN STABLE CONDITION.
[2016-11-17] MEDS ORDERED: LINEZOLID 600 MG TABLET PO SCH (21:00)
== END 2016-11-17 17:57 | disposition home or self-care (01) | DRG 405 ==
LOC: ER 12:07 → MEDSG2 16:34
PROVIDERS: ADMIT Internal Medicine; ATTEND Internal Medicine
PROC: 0QBN0ZX Excision of Right Metatarsal, Open Approach, Diagnostic (ICD-10-PCS; 2016-11-13)
PROC: 0Q9N0ZZ Drainage of Right Metatarsal, Open Approach (ICD-10-PCS; 2016-11-13)
PROC: 0QBN0ZZ Excision of Right Metatarsal, Open Approach (ICD-10-PCS; 2016-11-13)
PROC: 05H533Z Insertion of Infusion Device into Right Subclavian Vein, Percutaneous Approach (ICD-10-PCS; principal; 2016-11-15)
DX: E11.65 Type 2 diabetes mellitus with hyperglycemia (principal); E11.42 Type 2 diabetes mellitus with diabetic polyneuropathy; E11.621 Type 2 diabetes mellitus with foot ulcer; M86.171 Other acute osteomyelitis, right ankle and foot; E11.69 Type 2 diabetes mellitus with other specified complication; F11.20 Opioid dependence, uncomplicated; L03.115 Cellulitis of right lower limb; Z68.41 Body mass index [BMI] 40.0-44.9, adult; M86.671 Other chronic osteomyelitis, right ankle and foot; Z87.891 Personal history of nicotine dependence; F19.10 Other psychoactive substance abuse, uncomplicated; E66.01 Morbid (severe) obesity due to excess calories; Z91.19 Patient's noncompliance with other medical treatment and regimen; Z89.421 Acquired absence of other right toe(s); D50.9 Iron deficiency anemia, unspecified; L97.419 Non-pressure chronic ulcer of right heel and midfoot with unspecified severity; Z79.4 Long term (current) use of insulin; Z89.411 Acquired absence of right great toe; E44.1 Mild protein-calorie malnutrition
CPT/HCPCS: 36415; 36569; 73610-TC; 73630-TC; 80048-TC; 80053-TC; 80076-TC; 80202-TC; 80305; 81000-TC; 82962-TC; 83605-TC; 83735-TC; 84100-TC; 84484-TC; 85025-TC; 85730-TC; 87040-TC; 87070-TC; 87075-TC; 87081-TC; 87086-TC; 88305-TC; 88311-TC; 88312-TC; A4217; A4606; A6402; A6403; J0696; J1815; J2250; J2704; J3010; J3370; J3490; J7030; J7050; J7060; Z7610

== ENCOUNTER 2017-01-05 16:48 | Emergency (ER) | payer MEDICAID, OTHER ==
[~2017-01-05] VITALS: Ht 172.7 cm; Wt 126.1 kg
[2017-01-05 16:48] VITALS: BP 141/82
[~2017-01-05 16:48] MED LIST: INSU100V27 SQ; INSU3INS6 SUBCUT
--- NOTE | 2017-01-05 16:50 | NUR ---
BIB SELF, C/O RT INFECTED FOOT WOUND AND DISCHARGE, NAD NOTED, VSS, RESP EVEN AND UNLABORED, PT PUT ON MONITOR, WAITING FOR MD GROSS.
[2017-01-05] MEDS ORDERED: IV NS 0.9% 1,000 ML BAG IV ONE (17:30)
[2017-01-05] MEDS ORDERED: ACETAMINOPHEN 325 MG TABLET PO ONE (17:30)
[2017-01-05] MEDS ORDERED: VANCOMYCIN 1 GM in IV D5W 250 ML IV ONE (17:30)
[2017-01-05 17:40] LABS: BASOPHILS # (AUTO) 0.3 /CMM (0.0-0.2); BASOPHILS % (AUTO) 2.9 % (0.0-2.0); EOSINOPHILS # (AUTO) 0.3 /CMM (0.0-0.7); EOSINOPHILS % (AUTO) 2.5 % (0.0-6.0); HEMATOCRIT 32 % (39-51); HEMOGLOBIN 10.4 g/dL (13.5-17.5); LYMPHOCYTES # (AUTO) 1.9 /CMM (0.8-4.8); LYMPHOCYTES % (AUTO) 16.1 % (20.0-44.0); MEAN CORPUSCULAR HEMOGLOBIN 23 PG (26.0-33.0); MEAN CORPUSCULAR HGB CONC 32 g/dl (31.0-36.0); MEAN CORPUSCULAR VOLUME 72 fL (80-96); MONOCYTES % (AUTO) 8.4 % (2.0-12.0); NEUTROPHILS # (AUTO) 8.2 /CMM (1.8-8.9); NEUTROPHILS % (AUTO) 70.1 % (43.0-81.0); PLATELET COUNT (AUTO) 410 /CMM (150-450); RDW COEFFICIENT OF VARIATION 15.3 (11.5-15.0); WHITE BLOOD COUNT (AUTO) 11.7 K/uL (4.3-11.0)
[2017-01-05] MEDS ORDERED: ACETAMINOPHEN 325 MG TABLET ONE (17:43)
[2017-01-05 17:53] LABS: CALCIUM, SERUM 8.6 mg/dL (8.5-10.1); CREATININE 0.8 mg/dL (0.6-1.3)
[2017-01-05 17:55] LABS: INR 0.94 (0.87-1.13); PROTHROMBIN TIME 9.8 SECS (9.5-12.7)
[2017-01-05 17:58] LABS: ALBUMIN 2.6 g/dL (3.4-5.0); BILIRUBIN,TOTAL 0.3 mg/dL (0.2-1.0); TOTAL PROTEIN, SERUM 8.4 g/dL (6.4-8.2)
--- NOTE | 2017-01-06 01:46 | NUR ---
PT ACCEPTED TO [facility] BED 306-C. [phone]. ETA 15 MIN
--- NOTE | 2017-01-06 02:04 | NUR ---
PT REFUSE SALINE LOCK PLACEMENT AFTER 1ST ATTEMPT. PT STATES "I DON'T CARE WHAT YOU DO, YOU ARE NOT GONNA GET IT, JUST LET ME GO AND THEY WILL PUT A PICC LINE IN ME ANYWAY".
--- NOTE | 2017-01-06 02:10 | NUR ---
hilario at bedside for transport.
== END 2017-01-06 03:30 | disposition short-term general hospital (02) ==
LOC: ER 16:49
DX: M86.9 Osteomyelitis, unspecified (principal); F17.200 Nicotine dependence, unspecified, uncomplicated; E11.69 Type 2 diabetes mellitus with other specified complication; Z79.4 Long term (current) use of insulin
CPT/HCPCS: 36415; 71010; 73630; 80048; 80076; 83605; 85025; 85730; 87040 ×2; 93971; 96365; 99285; A4606; J3370; J7030; J7060; Z7610

== ENCOUNTER 2017-07-11 03:33 | Emergency (ER) | payer MEDICAID, OTHER ==
[~2017-07-11] VITALS: Ht 177.8 cm; Wt 117.9 kg
--- NOTE | 2017-07-11 03:48 | NUR ---
PT BIB 881 FROM [facility]. PT STATES "PICC LINE OUT OF PLACE X20 MINS BRANCH ASSOCIATE TELLER" PT AOX3 RR EVEN AND UNLABORED. NO SOB NOTED. NAD NOTED. NO NVD AT THIS TIME PT GOWNED AND PLACED ON MONITOR. PT NOTED WITH RIGHT UPPER ARM PICC LINE INTACT, FLUSHING WELL NO S/S INFECTION OR INFILTRATION AT THIS TIME. PT WAITING FOR MD GROSS.
--- NOTE | 2017-07-11 03:53 | NUR ---
RADIOLOGY AT BEDSIDE FOR CXR.
--- NOTE | 2017-07-11 05:20 | NUR ---
REPORT GIVEN TO ASIA STALEY, AWARE PT TO TRANSFER BACK TO FACILITY
--- NOTE | 2017-07-11 05:51 | NUR ---
REPORT GIVEN TO EMT FROM [facility] FOR LAITH. PT AWARE OF TRANSFER, VSS. PT WITH TIRSO PICC LINE INTACT AND PATENT. NO S/S INFECTION OR INFILTRATION AT THIS TIME. PT WITH ALL PERSONAL BELONGINGS. PT TO BE TRANSFERRED [facility]. HARRY ANDRADE TOOK OVER CARE.
[2017-07-11 06:08] VITALS: BP 144/74
== END 2017-07-11 06:09 | disposition home or self-care (01) ==
LOC: ER 03:35
DX: Z95.9 Presence of cardiac and vascular implant and graft, unspecified (principal); F10.10 Alcohol abuse, uncomplicated; F17.200 Nicotine dependence, unspecified, uncomplicated; E11.9 Type 2 diabetes mellitus without complications; Z79.4 Long term (current) use of insulin; Y92.89 Other specified places as the place of occurrence of the external cause
CPT/HCPCS: 71045-TC; A4606; Z7610